=== PATIENT | male | born 1965 | race Caucasian/White ===

== ENCOUNTER 2021-01-13 19:50 | Emergency (ER) | payer SELFPAY ==
[2021-01-13] MEDS ORDERED: Tetracaine HCl/PF 0.5% 4 ML Bottle EYELF ONE (20:06)
[2021-01-13] MEDS ORDERED: Tetracaine HCl/PF 0.5% 4 ML Bottle ONE (20:06)
[2021-01-13] MEDS ORDERED: Dexamethasone/Neomycin/Polymyxin B Ophth Susp 5 ML Bottle EYELF ONE (20:19)
--- NOTE | 2021-01-13 20:31 | EDM.PDOC ---
ED HPI GENERAL MEDICAL PROBLEM - General Chief Complaint: Eye Problems Stated Complaint: OBJECT IN LT EYE Time Seen by Provider: 01/13/21 19:54 Source of Information: Reports: Patient History Limitations: Reports: No Limitations - History of Present Illness INITIAL COMMENTS - FREE TEXT/NARRATIVE: Presents reporting foreign body left eye. The patient states that he was grinding metal and a shaving flew up under his safety glasses into his left eye. He has had this happen many times before. He usually is able to flick them out himself with a some fibers on the corner of a cigarette box but he couldn't get this one out--although he can see the shaving. No past medical problems. TD updated last year. L eye Pain Score (Numeric/FACES): 8 - Related Data Allergies Allergy/AdvReac Type Severity Reaction Status Date / Time No Known Allergies Allergy Verified 01/13/21 19:56 Home Meds: Home Meds . [No Known Home Meds] 01/13/21 [History] Past Medical History - Past Health History Medical/Surgical History: Denies Medical/Surgical History - Infectious Disease History Infectious Disease History: Reports: Chicken Pox Social & Family History - Family History Family Medical History: No Pertinent Family History - Caffeine Use Caffeine Use: Reports: Coffee - Recreational Drug Use Recreational Drug Use: No ED ROS GENERAL - Review of Systems Review Of Systems: Comprehensive ROS is negative, except as noted in HPI. ED EXAM GENERAL W FULL EYE - Physical Exam Exam: See Below Exam Limited By: No Limitations General Appearance: Alert, No Apparent Distress Eye Exam: Left Eye: Foreign Body (6 oclock just below the pupil), Bilateral Eye: EOMI, PERRL Visual Acuity (R) 20/: 25 Visual Acuity (L) 20/: 20 With Correction: No Eyelids: Bilateral: Normal Appearance Conjunctiva & Sclera: Bilateral: Normal Appearance Extraocular Movements: Bilateral: Intact Pupils: Normal Accommodation Pupillary Size: Bilateral: 4 mm Ears: Normal External Exam Nose: Normal Inspection Throat/Mouth: Normal Inspection Head: Atraumatic, Normocephalic Neck: Normal Inspection Respiratory/Chest: No Respiratory Distress, Lungs Clear, Normal Breath Sounds Cardiovascular: Normal Peripheral Pulses, Regular Rate, Rhythm Back Exam: Normal Inspection Extremities: Normal Inspection Neurological: Alert, Oriented Psychiatric: Normal Affect, Normal Mood Skin Exam: Warm, Dry, Intact, Normal Color, No Rash Lymphatic: No Adenopathy ED EYE w/ Add Procedure - Eye Procedure Alcaine Drops Administered: Yes Eye FB Removal: Removal w/ Needle Eye Irrigated w/ Saline (ccs): 8 Antibiotic Oinment/Drps Admin: Left Eye Course - Vital Signs Last Recorded V/S: Last Vital Signs Temp 36.6 C 01/13/21 19:56 Pulse 73 01/13/21 19:56 Resp 18 01/13/21 19:56 BP 126/71 01/13/21 19:56 Pulse Ox 96 01/13/21 19:56 - Orders/Labs/Meds Meds: Medications Discontinued Medications Generic Name Dose Route Start Last Admin Trade Name Freq PRN Reason Stop Dose Admin Neomycin/Polymyxin/Dexamethasone 1 ml 01/13/21 20:19 Dexamethasone/Neomycin/Polymyxin B Ophth Susp 5 Ml Bottle EYELF 01/13/21 20:20 ONETIME ONE Tetracaine HCl 1 ml 01/13/21 20:06 01/13/21 20:08 Tetracaine Hcl/Pf 0.5% 4 Ml Bottle EYELF 01/13/21 20:07 1 applic ASDIRECTED ONE Administration Tetracaine HCl Confirm 01/13/21 20:06 01/13/21 20:23 Tetracaine Hcl/Pf 0.5% 4 Ml Bottle Administered 01/13/21 20:07 Not Given Dose 4 ml .ROUTE .STK-MED ONE Departure - Departure Time of Disposition: 20:33 Disposition: Home, Self-Care 01 Condition: Good Clinical Impression: Foreign body in eye Qualifiers: Encounter type: initial encounter Laterality: left Qualified Code(s): T15.92XA - Foreign body on external eye, part unspecified, left eye, initial encounter - Discharge Information Referrals: PCP,None [Primary Care Provider] - [facility] [Outside] Additional Instructions: 1. 2 drops left eye four times a day for the next 48 hours 2. Wear safety glasses when grinding. Sepsis Event Note (ED) - Evaluation Sepsis Screening Result: No Definite Risk - Focused Exam Vital Signs: Vital Signs Temp Pulse Resp BP Pulse Ox 01/13/21 19:56 36.6 C 73 18 126/71 96
[2021-01-13] MEDS ORDERED: Dexamethasone/Tobramycin 0.1-0.3% Ophth Susp 5 ML Bottle EYELF SCH (20:45)
== END 2021-01-13 21:01 | disposition home or self-care (01) ==
LOC: MW.ED 19:50
DX: T15.92XA Foreign body on external eye, part unspecified, left eye, initial encounter (principal)
CPT/HCPCS: 65220; 99283; A9270

== ENCOUNTER 2025-04-11 23:50 | Emergency (ER) | payer MEDICAID, OTHER ==
[2025-04-12] MEDS: Ketorolac 30 MG/ML SDV IM ONE (00:02)
== END 2025-04-12 04:12 | disposition home or self-care (01) ==
LOC: MW.ED 23:50
DX: S02.40DA Maxillary fracture, left side, initial encounter for closed fracture (principal); S02.85XA Fracture of orbit, unspecified, initial encounter for closed fracture; S02.602A Fracture of unspecified part of body of left mandible, initial encounter for closed fracture; S52.501A Unspecified fracture of the lower end of right radius, initial encounter for closed fracture; Y04.8XXA Assault by other bodily force, initial encounter
CPT/HCPCS: 29125; 70450; 70486; 72125; 73090; 73120; 96372; 99284; J1885; J2270